=== PATIENT | male | born 1965 | race Caucasian/White ===

== ENCOUNTER → 2017-06-17 | Outpatient (CLI) | payer OTHER ==
[~2017-06-17] MED LIST: IBUPROFEN600 MG ORAL
--- NOTE | 2017-06-17 17:25 | Diagnostic Imaging Report ---
Indication: COUGH Technique: 2 views of the chest Comparison: 06/09/2008. Findings: Lungs and pleural spaces are clear. Heart size is normal. Bones are unremarkable. No significant change. Impression: No acute process
== END | disposition home or self-care (01) ==
LOC: RAD 16:04
DX: Z01.818 Encounter for other preprocedural examination (principal); R05 Cough
CPT/HCPCS: 71020